=== PATIENT | female | born 1995 ===

== ENCOUNTER 2016-07-21 12:22 | Emergency (ER) | payer OTHER ==
[2016-07-21] MEDS ORDERED: Ibuprofen TAB* 400 MG PO ONE (13:17)
[2016-07-21] MEDS ORDERED: Acetaminophen TAB* 325 MG PO ONE (13:18)
--- NOTE | 2016-07-21 13:23 | UC ---
Throat Pain/Nasal Johnathan HPI - History of Current Complaint Chief Complaint: UCRespiratory Stated Complaint: CONGESTION SORE THROAT FEVER Time Seen by Provider: 07/21/16 13:05 Hx Obtained From: Patient Hx Last Menstrual Period: 07/02/16 ?: No Onset/Duration: Gradual Onset - started last week with ST, fatigue, fever, was seen at [place] and told it was a virus and to start amoxil if no better in 2-3 days. pt did start amoxil, was no better 2 days later so went back to [place] and tested neg for flu. Pt states her ST is worse, she has PND, white spots on tonsils, fever and fatigue. she also has a cough because of congestion in upper front chest Cough: Nonproductive Associated Signs & Symptoms: Positive: Fever, Other - very ST with white spots. Negative: Wheezing, Sinus Discomfort, Rash - Allergies/Home Medications Allergies/Adverse Reactions: Allergies Allergy/AdvReac Type Severity Reaction Status Date / Time No Known Allergies Allergy Verified 07/21/16 12:51 Home Medications: Home Medications Acetaminophen [Tylenol] 325 mg PO Q4H PRN 07/21/16 [History Confirmed 07/21/16] Amoxicillin (*) [Amoxicillin 875 MG (*)] 875 mg PO BID 07/21/16 [History Confirmed 07/21/16] Lactobacillus [Probiotic] 1 cap PO DAILY 07/21/16 [History Confirmed 07/21/16] Multiple Vitamin [Multi Vitamin] 1 tab PO DAILY 07/21/16 [History Confirmed ] PMH/Surg Hx/FS Hx/Imm Hx Previously Healthy: Yes Endocrine History Of: Denies: Diabetes Respiratory History Of: Denies: Asthma GI/ History Of: Denies: Gastroesophageal Reflux Psychological History Of: Denies: Anxiety, Depression - Surgical History Surgical History: None - Family History Known Family History: Positive: None - Social History Occupation: Student - [place] Lives: With Family Alcohol Use: None Substance Use Type: None Smoking Status (MU): Never Smoked Tobacco - Immunization History Most Recent Influenza Vaccination: none Review of Systems Constitutional: Fever, Fatigue Skin: Negative Eyes: Negative ENT: Sore Throat Respiratory: Cough Cardiovascular: Negative Gastrointestinal: Abdominal Pain - LUQ Genitourinary: Negative Motor: Negative Neurovascular: Negative Musculoskeletal: Negative Neurological: Negative Psychological: Anxious - feeling stressed with all the school work she has and feeling so bad she can't do it All Other Systems Reviewed And Are Negative: Yes Physical Exam Triage Information Reviewed: Yes Appearance: No Pain Distress, Well-Nourished, Other: - tearful d/t feeling so sick and stress of school Vital Signs: Initial Vital Signs Temp 102.7 F 07/21/16 12:54 Pulse 118 07/21/16 12:54 Resp 16 07/21/16 12:54 BP 121/71 07/21/16 12:54 Pulse Ox 95 07/21/16 12:54 Vital Signs Reviewed: Yes Eye Exam: Normal ENT: Positive: Pharyngeal erythema, Tonsillar exudate, Other: - thick PND Neck: Positive: Tenderness @ - bilateral ant cervical, Enlarged Nodes @ - bilateral ant cervical Respiratory: Positive: Lungs clear, Other: - occass dry cough heard Cardiovascular Exam: Normal Cardiovascular: Positive: RRR, No Murmur, Pulses Normal Abdomen Description: Positive: Other: - pain on palp LUQ. Negative: Distended, Guarding, Splenomegaly - appraciated on exam Bowel Sounds: Positive: Present Neurological Exam: Normal Neurological: Positive: Alert Psychological Exam: Normal Skin Exam: Normal Skin: Negative: rashes Re-Evaluation - Re-Evaluation First Eval Re-Evaluation Time: 14:10 - states feeling better, body ahces have resolved after tylenol and ibuprofen. temp down to T 98.9 Change: Improved Throat Pain/Nasal Course/Dx - Differential Dx/Diagnosis Differential Diagnosis/HQI/PQRI: Influenza, Mononucleosis, Peritonsillar Abscess , Pharyngitis, Sinusitis, Tonsillitis, URI, Other Provider Diagnoses: probable mononucleosis Discharge - Discharge Plan Condition: Improved Disposition: HOME Patient Education Materials: Mononucleosis (ED) Forms: *Gen. Provider Communication Referrals: [facility] GRAHAM Gamble [Medical Doctor] - 3 Days (for recheck if symptoms no better) Additional Instructions: drink plenty of fluids take: ibuprofen 800mg every 6 hours for fever tylenol 650mg every 4 hours for fever Rest when possible call next week for blood work results Go to ER if at anytime you feel worse or cannot control fever with ibuprofen and tylenol
[2016-07-22 12:19] LABS: Hematocrit 38 % (35-47); Hemoglobin 12.7 g/dl (12.0-16.0); Mean Corpuscular HGB Conc 33 g/dl (31-36); Mean Corpuscular Hemoglobin 30 pg (27-31); Mean Corpuscular Volume 89 fL (80-97); Mean Platelet Volume 10 um3 (7.4-10.4); Red Blood Count 4.28 10^6/ul (4.0-5.4); Red Cell Distribution Width 13 % (10.5-15); White Blood Count 7.4 10^3/ul (3.5-10.8)
[2016-07-22 12:51] LABS: Add Diff/Slide Review? Slide Review Added; Comments Flag Yes
[2016-07-24 14:33] LABS: EBV Capsid Ag IgG Ab Positive (Negative); EBV Capsid Ag IgM Ab Negative (Negative)
== END 2016-07-21 14:57 | disposition home or self-care (01) ==
LOC: UCEAST 12:22
DX: J02.9 Acute pharyngitis, unspecified (principal); R50.9 Fever, unspecified; R53.83 Other fatigue; R10.12 Left upper quadrant pain
CPT/HCPCS: 36415; 85025; 86664; 86665; 87651; 99202; A9270-GY; G0463